=== PATIENT | female | born 1995 | race American Indian/Alaskan Native ===

== ENCOUNTER 2017-02-22 15:07 | Emergency (ER) | payer OTHER ==
[2017-02-22 15:15] VITALS: BP 102/56
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
[2017-02-22] MEDS ORDERED: TRIPLE ANTIBIOTIC TP ONE ×2 (19:40→19:42)
[2017-02-22] MEDS ORDERED: TYLENOL PO ONE (19:40)
[2017-02-22] MEDS ORDERED: TYLENOL ONE (19:41)
== END 2017-02-22 19:45 | disposition home or self-care (01) ==
LOC: ED 15:07
DX: Z04.3 Encounter for examination and observation following other accident (principal); V49.59XA Passenger injured in collision with other motor vehicles in traffic accident, initial encounter; Y93.89 Activity, other specified; Y92.89 Other specified places as the place of occurrence of the external cause; Y99.8 Other external cause status
CPT/HCPCS: A6250

== ENCOUNTER 2018-05-05 00:11 | Emergency (ER) | payer BC, OTHER ==
--- NOTE | 2018-05-05 06:58 | Emergency Department Report ---
- General Chief complaint: Skin/Abscess/Foreign Body Stated complaint: SWOLLEN EYE Time Seen by Provider: 05/05/18 06:53 Source: patient Mode of arrival: Ambulatory Limitations: No Limitations - History of Present Illness Initial comments: left cheek cellulitis erythema ulceration x 1 week no fever no chills no visual loss itching is primary concern. symptom exacerbated by itch scratch cycle , symptoms improved by itch scratch cycle. MD complaint: abscess/boil Onset/Timin -: week(s) Tetanus Up to Date: yes Location: face Severity: moderate Severity scale (0 -10): 4 Quality: other (itching burning ) Consistency: intermittent Improves with: other (itch scratch cycle ) Worsens with: other (itch scratch cycle ) Context: none Associated symptoms: itching Treatments Prior to Arrival: none - Related Data Previous Rx's Medication Instructions Recorded Last Taken Type Cyclobenzaprine [Flexeril] 10 mg PO TID PRN 4 Days #12 tablet 02/22/17 Unknown Rx Ibuprofen [Motrin] 600 mg PO Q8H PRN 4 Days #12 tablet 02/22/17 Unknown Rx Cephalexin [Keflex] 500 mg PO TID 10 Days #30 capsule 05/05/18 Unknown Rx Diphenhydramine HCl [Benadryl GEL] 1 applicatio TP TID PRN #1 bottle 05/05/18 Unknown Rx Ibuprofen 800 mg PO TID PRN #30 tablet 05/05/18 Unknown Rx Mupirocin [Bactroban 2% OINT] 1 applic TP TID 10 Days #1 tube 05/05/18 Unknown Rx Allergies Allergy/AdvReac Type Severity Reaction Status Date / Time amoxicillin Allergy Hives Verified 02/22/17 15:13 Abscess Boil HPI - HPI Chief Complaint: Skin/Abscess/Foreign Body Stated Complaint: SWOLLEN EYE Time Seen by Provider: 05/05/18 06:53 Home Medications: Previous Rx's Medication Instructions Recorded Last Taken Type Cyclobenzaprine [Flexeril] 10 mg PO TID PRN 4 Days #12 tablet 02/22/17 Unknown Rx Ibuprofen [Motrin] 600 mg PO Q8H PRN 4 Days #12 tablet 02/22/17 Unknown Rx Cephalexin [Keflex] 500 mg PO TID 10 Days #30 capsule 05/05/18 Unknown Rx Diphenhydramine HCl [Benadryl GEL] 1 applicatio TP TID PRN #1 bottle 05/05/18 Unknown Rx Ibuprofen 800 mg PO TID PRN #30 tablet 05/05/18 Unknown Rx Mupirocin [Bactroban 2% OINT] 1 applic TP TID 10 Days #1 tube 05/05/18 Unknown Rx Allergies/Adverse Reactions: Allergies Allergy/AdvReac Type Severity Reaction Status Date / Time amoxicillin Allergy Hives Verified 02/22/17 15:13 ED Review of Systems ROS: Stated complaint: SWOLLEN EYE Other details as noted in HPI Constitutional: denies: chills, fever Eyes: denies: eye pain, eye discharge, vision change ENT: denies: ear pain, throat pain Respiratory: denies: cough, shortness of breath, wheezing Cardiovascular: denies: chest pain, palpitations Endocrine: no symptoms reported Gastrointestinal: denies: abdominal pain, nausea, diarrhea Genitourinary: denies: urgency, dysuria, discharge Musculoskeletal: denies: back pain, joint swelling, arthralgia Skin: lesions (abscess left cheek ). denies: rash Neurological: denies: headache, weakness, paresthesias Psychiatric: denies: anxiety, depression Hematological/Lymphatic: denies: easy bleeding, easy bruising ED Past Medical Hx - Past Medical History Previous Medical History?: No - Surgical History Past Surgical History?: No - Social History Smoking Status: Never Smoker Substance Use Type: None - Medications Home Medications: Home Medications Medication Instructions Recorded Confirmed Last Taken Type Cyclobenzaprine [Flexeril] 10 mg PO TID PRN 4 Days #12 tablet 02/22/17 Unknown Rx Ibuprofen [Motrin] 600 mg PO Q8H PRN 4 Days #12 tablet 02/22/17 Unknown Rx Cephalexin [Keflex] 500 mg PO TID 10 Days #30 capsule 05/05/18 Unknown Rx Diphenhydramine HCl [Benadryl GEL] 1 applicatio TP TID PRN #1 bottle 05/05/18 Unknown Rx Ibuprofen 800 mg PO TID PRN #30 tablet 05/05/18 Unknown Rx Mupirocin [Bactroban 2% OINT] 1 applic TP TID 10 Days #1 tube 05/05/18 Unknown Rx ED Physical Exam - General Limitations: No Limitations General appearance: alert, in no apparent distress - Head Head exam: Present: atraumatic, normocephalic - Eye Eye exam: Present: normal appearance, PERRL, EOMI. Absent: scleral icterus, nystagmus Pupils: Present: normal accommodation - ENT ENT exam: Present: normal exam, normal orophraynx, mucous membranes moist, TM's normal bilaterally, normal external ear exam - Neck Neck exam: Present: normal inspection - Respiratory Respiratory exam: Present: normal lung sounds bilaterally. Absent: respiratory distress - Cardiovascular Cardiovascular Exam: Present: regular rate, normal rhythm, normal heart sounds. Absent: systolic murmur, diastolic murmur, rubs, gallop - GI/Abdominal GI/Abdominal exam: Present: soft, normal bowel sounds - Rectal Rectal exam: Present: deferred - Extremities Exam Extremities exam: Present: normal inspection - Back Exam Back exam: Present: normal inspection, full ROM - Neurological Exam Neurological exam: Present: alert, oriented X3, CN II-XII intact, normal gait - Psychiatric Psychiatric exam: Present: normal affect, normal mood - Skin Skin exam: Present: warm, dry, intact, normal color. Absent: rash ED Course Vital Signs 05/05/18 00:57 Temperature 98.1 F Pulse Rate 55 L Respiratory 20 Rate Blood Pressure 113/70 O2 Sat by Pulse 100 Oximetry ED Medical Decision Making - Radiology Data Radiology results: report reviewed, image reviewed - Medical Decision Making This is a left cheek cellulitis there is no I chamber involvement patient is EOMI PERRLA conjunctivae are clear swelling is cheek and orbital floor only no eye entrapment visual acquity is 20/20 bilat this is cellulitis will tx with keflex, benadry, mupirocin, follow up with opthalmology in 2 days will return to ed if symptoms worsen pt verbalized agreement and understanding of same. Critical care attestation.: If time is entered above; I have spent that time in minutes in the direct care of this critically ill patient, excluding procedure time. ED Disposition Clinical Impression: Cellulitis and abscess of face Disposition: DC- TO HOME OR SELFCARE Is pt being admited?: No Does the pt Need Aspirin: No Condition: Stable Instructions: Cellulitis (ED) Prescriptions: Cephalexin [Keflex] 500 mg PO TID 10 Days #30 capsule Diphenhydramine HCl [Benadryl GEL] 1 applicatio TP TID PRN #1 bottle PRN Reason: itching Ibuprofen 800 mg PO TID PRN #30 tablet PRN Reason: pain Mupirocin [Bactroban 2% OINT] 1 applic TP TID 10 Days #1 tube Referrals: ABA EMANUEL MD [Staff Physician] - 3-5 Days NISA WAGNER MD [Primary Care Provider] - 2-3 Days Forms: Work/School Release Form(ED) Time of Disposition: 07:15
== END 2018-05-05 07:35 | disposition home or self-care (01) ==
LOC: ED 00:11
CPT/HCPCS: 99282